=== PATIENT | female | born 1960 | race Caucasian/White ===

== ENCOUNTER 2020-09-27 16:14 | Emergency (ER) | payer OTHER ==
[~2020-09-27] VITALS: Ht 157.5 cm; Wt 55.3 kg
[2020-09-27 16:53] VITALS: Ht 157.5 cm; Wt 55.3 kg
[2020-09-27 17:53] LABS: BASOPHIL % 0.3 % (0-2); PLATELET COUNT 257 x10^3mcL (130-400); RED CELL DISTRIBUTION WIDTH 15.5 % (11.5-14.5)
[2020-09-27 18:02] LABS: CALCIUM 9.3 mg/dL (8.5-10.1); CARBON DIOXIDE 28.3 mmol/L (21-32); CHLORIDE SERUM 106 mmol/L (98-107); CREATININE SERUM 0.8 mg/dL (0.6-1.0); GFR1 > 60 mL/min; GLUCOSE SERUM 104 mg/dL (74-106); SODIUM SERUM 143 mmol/L (136-145)
[2020-09-27 18:21] LABS: ALBUMIN 4.4 g/dL (3.4-5.0); ALKALINE PHOSPHATASE 70 U/L (46-116); ALT/SGPT 21 U/L (14-59); AST/SGOT 17 U/L (15-37); BILIRUBIN TOTAL 0.3 mg/dL (0.20-1.00); T4(THYROXINE) 8.8 ug/dL (4.7-13.3); TOTAL PROTEIN, SERUM 8.2 g/dL (6.4-8.2)
[2020-09-27 19:20] VITALS: BP 148/76
== END 2020-09-27 19:20 | disposition home or self-care (01) ==
LOC: ED 16:14
PROVIDERS: Emergency Medicine
DX: F41.9 Anxiety disorder, unspecified (principal); I10 Essential (primary) hypertension; Z91.041 Radiographic dye allergy status